=== PATIENT | male | born 1960 | race Caucasian/White ===

== ENCOUNTER 2023-06-05 21:50 | Emergency (ER) | payer BC ==
--- NOTE | 2023-06-05 22:11 | ED Physician Documentation ---
History of Present Illness - Stated complaint Stated Complaint: VOMITING - Additonal information Additional information: Patient 62-year-old male with past medical significant for chronic back pain presenting to the emergency department with nausea, vomiting, diarrhea. Symptoms ongoing x1 day. [place]. No other known sick contacts. Denies fever, chills, abdominal pain not associated with vomiting, dysuria, chest pain or shortness of breath. Review of Systems Constitutional: denies: Fever Eyes: denies: Loss of vision Ears: denies: Loss of hearing Nose: denies: Rhinorrhea / runny nose Throat: denies: Dental pain / toothache Cardiac: denies: Chest pain / pressure Respiratory: denies: Dyspnea GI: reports: Nausea, Vomiting, Diarrhea Musculoskeletal: reports: Back pain PD PAST MEDICAL HISTORY - Present Medications Home Medications: Ambulatory Orders Medication Instructions Recorded Confirmed Ondansetron Odt [Zofran Odt] 4 mg TL Q6H PRN #10 tablet 06/05/23 - Allergies Allergies/Adverse Reactions: Allergies Allergy/AdvReac Type Severity Reaction Status Date / Time No Known Drug Allergies Allergy Verified 06/05/23 22:16 PD ED PE NORMAL - Vitals Vital signs reviewed: Yes - General General: Alert and oriented X 3, No acute distress, Well developed/nourished - HEENT HEENT: Atraumatic, PERRL, EOMI, Ears normal, Moist mucous membranes, Pharynx benign - Neck Neck: Supple, no meningeal sign, No JVD - Cardiac Cardiac: RRR, No murmur, No gallop, No rub, Other (Tachycardic) - Respiratory Respiratory: No respiratory distress - Abdomen Abdomen: Normal bowel sounds, Soft, Non tender, Non distended - Male Male : Deferred - Rectal Rectal: Deferred - Back Back: No CVA TTP, No spinal TTP - Derm Derm: Normal color - Extremities Extremities: No deformity - Neuro Neuro: Alert and oriented X 3, 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, No motor deficit, No sensory deficit, Normal speech Results - Vitals Vitals: Vital Signs - 24 hr 06/05/23 06/05/23 22:15 23:17 Temperature 37.4 C Heart Rate 114 H 114 H Respiratory 18 16 Rate Blood Pressure 176/94 H 154/88 H O2 Saturation 97 98 Oxygen O2 Source Room air - Labs Labs: Laboratory Tests 06/05/23 06/05/23 22:34 22:34 WBC 21.4 H RBC 5.16 Hgb 14.6 Hct 43.9 MCV 85.1 MCH 28.3 MCHC 33.3 RDW 13.2 Plt Count 310 MPV 10.3 Neut # (Auto) Not Reportable Lymph # (Auto) Not Reportable [place] # (Auto) Not Reportable Eos # (Auto) Not Reportable Baso # (Auto) Not Reportable Absolute Nucleated RBC Not Reportable Total Counted 100 Band Neuts % (Manual) 0 Abnorm Lymph % (Manual) 0 Nucleated RBC % Not Reportable Neutrophils # (Manual) 20.5 H Lymphocytes # (Manual) 0.2 L Monocytes # (Manual) 0.6 Eosinophils # (Manual) 0.0 Basophils # (Manual) 0.0 Differential Comment MANUAL DIFFERENTIAL Platelet Estimate NORMAL (130-450,000) Platelet Morphology NORMAL APPEARANCE RBC Morph Micro Appear NORMAL APPEARANCE Sodium 138 Potassium 3.7 Chloride 103 Carbon Dioxide 24 Anion Gap 11.0 BUN 17 Creatinine 1.1 Estimated GFR (MDRD) 67 L Glucose 161 H Calcium 9.1 Total Bilirubin 0.8 AST 14 ALT 19 Alkaline Phosphatase 105 Total Protein 7.8 Albumin 4.3 Globulin 3.5 Albumin/Globulin Ratio 1.2 Lipase 26 PD Medical Decision Making - ED course Complexity details: reviewed results, re-evaluated patient, considered differential, d/w patient, d/w family ED course: Patient 62-year-old male presenting to the emergency department with nausea, vomiting, diarrhea. Past medical significant for back pain. Presents to the emergency department 1 day nausea vomiting and diarrhea. Abdominal exam benign. Given IV hydration, ondansetron and single 2 mg dose of morphine for his back pain. Labs in the emergency department all within normal limits are generally nonactionable. On reevaluation patient found to be resting comfortably. In no acute distress. Tolerated p.o. intake. Departure - Departure Disposition: 01 Home, Self Care Clinical Impression: Vomiting Qualifiers: Vomiting type: unspecified Nausea presence: with nausea Qualified Code(s): R11.2 - Nausea with vomiting, unspecified Prescriptions: Ondansetron Odt [Zofran Odt] 4 mg TL Q6H PRN #10 tablet PRN Reason: Nausea / Vomiting Comments: Thank you for allowing us to care for you today at [facility]. Today in the emergency department your evaluated for any possible life- threatening medical emergency. Your electrolytes, kidney and renal function were all within appropriate limits. You do were noted to have an elevated white blood cell count which is nonspecific finding indicating inflammation or sometimes infection. I am glad that you are feeling better. An elevated white blood cell count is not uncommon in the setting of multiple episodes of nausea vomiting however if you to begin to develop other troublesome symptoms such as fever, abdominal pain, worsening back pain, numbness or tingling around your anus or genitalia or weakness in your lower extremities is importantly return to the emergency department immediately for reevaluation.
[2023-06-05] MEDS ORDERED: SODIUM CHLORIDE 0.9% 2,000 ML IV STA (22:16)
[2023-06-05] MEDS ORDERED: ONDANSETRON 4 MG/2 ML VIAL IVP STA (22:16)
[2023-06-05] MEDS ORDERED: MORPHINE 2 MG/ML CARPUJECT IVP STA (22:16)
[2023-06-05 22:39] LABS: BASOPHILS % (AUTO) 0.1 %; HCT - HEMATOCRIT 43.9 % (42.0-52.0); HGB - HEMOGLOBIN 14.6 g/dL (14.0-18.0); LYMPHOCYTES % (AUTO) 2.4 %; MEAN CORPUSCULAR HEMOGLOBIN 28.3 pg (27.0-31.0); MEAN CORPUSCULAR HGB CONC 33.3 g/dL (32.0-36.0); MEAN CORPUSCULAR VOLUME 85.1 fL (80.0-94.0); MEAN PLATELET VOLUME 10.3 fL (7.4-11.4); MONOCYTES % (AUTO) 8.1 %; PLT - PLATELET COUNT 310 10^3/uL (130-450); RED BLOOD COUNT 5.16 10^6/uL (4.70-6.10); RED CELL DISTRIBUTION WIDTH 13.2 % (12.0-15.0); WHITE BLOOD COUNT 21.4 x10^3/uL (4.8-10.8)
[2023-06-05 22:41] LABS: ABNORMAL LYMPHS % (MANUAL) 0 %; BAND NEUTROPHILS % (MANUAL) 0 %
[2023-06-05 22:52] LABS: ALBUMIN 4.3 g/dL (3.2-5.5); ALBUMIN/GLOBULIN RATIO 1.2 (1.0-2.2); BILIRUBIN,TOTAL 0.8 mg/dL (0.2-1.0); CALCIUM 9.1 mg/dL (8.5-10.3); CREATININE 1.1 mg/dL (0.6-1.2); POTASSIUM 3.7 mmol/L (3.5-5.0); TOTAL PROTEIN 7.8 g/dL (6.7-8.2)
[2023-06-05 22:59] LABS: LYMPHOCYTES # (MANUAL) 0.2 10^3/uL (1.5-3.5); LYMPHOCYTES % (MANUAL) 1 %; MONOCYTES # (MANUAL) 0.6 10^3/uL (0.0-1.0); NEUTROPHILS # (MANUAL) 20.5 10^3/uL (1.5-6.6); PLATELET MORPHOLOGY NORMAL APPEARANCE (NORMAL); RBC MORPHOLOGY (MULTIPLE) NORMAL APPEARANCE (NORMAL)
[2023-06-05 23:00] LABS: DIFFERENTIAL COMMENT MANUAL DIFFERENTIAL; PLATELET ESTIMATE, MANUAL NORMAL (130-450,000) (NORMAL)
[2023-06-05] MEDS ORDERED: ONDANSETRON ODT 4 MG Prepack 2 TL PRN (23:44)
[2023-06-06 00:18] VITALS: BP 169/67
== END 2023-06-06 00:15 | disposition home or self-care (01) ==
LOC: ED 21:50
DX: R11.2 Nausea with vomiting, unspecified (principal); M54.9 Dorsalgia, unspecified; G89.29 Other chronic pain; R33.9 Retention of urine, unspecified
CPT/HCPCS: 36415; 51702; 51798; 80053; 81001; 81003; 83690; 84484; 85025; 87086; 96361; 96374; 99283; 99284

== ENCOUNTER 2023-06-06 06:43 | Emergency (ER) | payer BC ==
[2023-06-06 07:34] LABS: BASOPHILS % (AUTO) 0.2 %; HCT - HEMATOCRIT 42.6 % (42.0-52.0); HGB - HEMOGLOBIN 14.1 g/dL (14.0-18.0); LYMPHOCYTES # (AUTO) 0.6 10^3/uL (1.5-3.5); LYMPHOCYTES % (AUTO) 3.4 %; MEAN CORPUSCULAR HEMOGLOBIN 28.2 pg (27.0-31.0); MEAN CORPUSCULAR HGB CONC 33.1 g/dL (32.0-36.0); MEAN CORPUSCULAR VOLUME 85.2 fL (80.0-94.0); MEAN PLATELET VOLUME 10.4 fL (7.4-11.4); MONOCYTES % (AUTO) 5.4 %; NEUTROPHILS # (AUTO) 16.3 10^3/uL (1.5-6.6); NEUTROPHILS % (AUTO) 90.7 %; PLT - PLATELET COUNT 311 10^3/uL (130-450); RED CELL DISTRIBUTION WIDTH 13.5 % (12.0-15.0)
[2023-06-06 07:49] LABS: ALBUMIN 3.8 g/dL (3.2-5.5); ALBUMIN/GLOBULIN RATIO 1.2 (1.0-2.2); BILIRUBIN,TOTAL 1.1 mg/dL (0.2-1.0); CALCIUM 8.5 mg/dL (8.5-10.3); CREATININE 1.1 mg/dL (0.6-1.2); POTASSIUM 3.6 mmol/L (3.5-5.0); TOTAL PROTEIN 7.1 g/dL (6.7-8.2)
--- NOTE | 2023-06-06 07:51 | ED Physician Documentation ---
PD HPI ABD PAIN - Stated complaint Stated Complaint: CHEST/ABD PX - Chief complaint Chief Complaint: Abd Pain - History obtained from History obtained from: Patient, Family - History of Present Illness Timing - onset: Enter time (0600), Today Timing - duration: Hours Timing - details: Abrupt onset, Still present Quality: Sharp, Pain Location: Suprapubic Radiation: Lower back Improved by: Laying still Worsened by: Moving, Position, Palpation Associated symptoms: Nausea. No: Vomiting Similar symptoms before: Has not had sx before Recently seen: Emergency Dept - Additional information Additional information: Lamine is a 62-year-old male with a history of chronic back pain with left-sided sciatica who is on pain medication and he presented to the emergency department last night with vomiting and diarrhea. He was given a dose of morphine and Zofran with improvement in his pain and he was given IV hydration he had 2 L. This morning at 6:00 he awoke in severe pain unable to urinate. He is come back to the emergency department. He has not had a problem previously with urination or with his prostate. Review of Systems Constitutional: denies: Fever Eyes: denies: Decreased vision Ears: denies: Ear pain Nose: denies: Congestion Throat: denies: Sore throat Cardiac: denies: Chest pain / pressure Respiratory: denies: Dyspnea, Cough GI: reports: Abdominal Pain, Vomiting (resolved), Diarrhea (resolved) : reports: Unable to Void Skin: denies: Rash Musculoskeletal: reports: Back pain (chronic). denies: Neck pain, Extremity swelling Neurologic: denies: Generalized weakness, Focal weakness, Numbness PD PAST MEDICAL HISTORY - Present Medications Home Medications: Ambulatory Orders Medication Instructions Recorded Confirmed Ondansetron Odt [Zofran Odt] 4 mg TL Q6H PRN #10 tablet 06/05/23 - Allergies Allergies/Adverse Reactions: Allergies Allergy/AdvReac Type Severity Reaction Status Date / Time No Known Drug Allergies Allergy Verified 06/05/23 22:16 PD ED PE NORMAL - Vitals Vital signs reviewed: Yes (tachy and hypertensive) - General General: Alert and oriented X 3, Well developed/nourished, Other (anxious and in pain ) - HEENT HEENT: Atraumatic, PERRL, EOMI - Neck Neck: Supple, no meningeal sign, No bony TTP - Cardiac Cardiac: RRR, No murmur - Respiratory Respiratory: No respiratory distress, Clear bilaterally - Abdomen Abdomen: Normal bowel sounds, Soft, No organomegaly, Other (tender suprapubic reproducing the symptoms the patient is having. 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, No motor deficit, No sensory deficit, Normal speech Eye Opening: Spontaneous Motor: Obeys Commands Verbal: Oriented GCS Score: 15 - Psych Psych: Normal mood, Normal affect Results - Vitals Vitals: Vital Signs - 24 hr 06/06/23 06/06/23 06:53 07:55 Temperature 36.7 C Heart Rate 103 H 95 Respiratory 16 20 Rate Blood Pressure 148/87 H 132/90 H O2 Saturation 93 95 Oxygen O2 Source Room air - Labs Labs: Laboratory Tests 06/06/23 06/06/23 06/06/23 07:29 07:29 07:29 WBC 18.0 H RBC 5.00 Hgb 14.1 Hct 42.6 MCV 85.2 MCH 28.2 MCHC 33.1 RDW 13.5 Plt Count 311 MPV 10.4 Neut # (Auto) 16.3 H Lymph # (Auto) 0.6 L [place] # (Auto) 1.0 Eos # (Auto) 0.0 Baso # (Auto) 0.0 Absolute Nucleated RBC 0.00 Nucleated RBC % 0.0 Sodium 137 Potassium 3.6 Chloride 105 Carbon Dioxide 21 Anion Gap 11.0 BUN 16 Creatinine 1.1 Estimated GFR (MDRD) 67 L Glucose 187 H Calcium 8.5 Total Bilirubin 1.1 H AST 13 ALT 18 Alkaline Phosphatase 93 Troponin I High Sens 4.9 Total Protein 7.1 Albumin 3.8 Globulin 3.3 Albumin/Globulin Ratio 1.2 Lipase 27 Urine Color Urine Clarity Urine pH Ur Specific [place] Urine Protein Urine Glucose (UA) Urine Ketones Urine Occult Blood Urine Nitrite Urine Bilirubin Urine Urobilinogen Ur Leukocyte Esterase Urine RBC Urine WBC Ur Squamous Epith Cells Urine Bacteria Urine Casts Urine Mucus Ur Microscopic Review Urine Culture Comments 06/06/23 07:48 WBC RBC Hgb Hct MCV MCH MCHC RDW Plt Count MPV Neut # (Auto) Lymph # (Auto) [place] # (Auto) Eos # (Auto) Baso # (Auto) Absolute Nucleated RBC Nucleated RBC % Sodium Potassium Chloride Carbon Dioxide Anion Gap BUN Creatinine Estimated GFR (MDRD) Glucose Calcium Total Bilirubin AST ALT Alkaline Phosphatase Troponin I High Sens Total Protein Albumin Globulin Albumin/Globulin Ratio Lipase Urine Color YELLOW Urine Clarity CLEAR Urine pH 5.5 Ur Specific [place] >=1.030 H Urine Protein TRACE Urine Glucose (UA) NEGATIVE Urine Ketones 15 H Urine Occult Blood SMALL H Urine Nitrite NEGATIVE Urine Bilirubin NEGATIVE Urine Urobilinogen 0.2 (NORMAL) Ur Leukocyte Esterase NEGATIVE Urine RBC 0-5 Urine WBC 0-3 Ur Squamous Epith Cells FEW Squamous Urine Bacteria Few Urine Casts 0-2 Hyaline Casts Urine Mucus Marked Strands Ur Microscopic Review INDICATED Urine Culture Comments NOT INDICATED Procedures - Bedside sono Bedside sono by EMP: With use of POCUS the suprapubic area is examined and it is sonographically tender the bladder is full it does not appear excessively large. Bilaterally the kidneys are sonographically nontender there is mild hydro bilaterally PD Medical Decision Making - ED course Complexity details: considered differential, d/w patient, d/w family Reviewed Lab Results: We reviewed a complete blood count showing an elevated white blood cell count of 18,000 down from 22,000 a normal hemoglobin hematocrit and platelets the chemistries show normal electrolytes glucose is elevated at 187 kidney function is normal liver function is normal and high-sensitivity troponin is normal urinalysis shows concentrated urine with ketones and small occult blood no evidence of infection. My interpretation of these laboratory results are improvement in the patient's white blood cell count as expected from improvement in the gastroenteritis symptoms. Urinalysis is helpful in describing a urine without evidence of infection. The laboratory results today are primarily reassuring. They do not indicate a specific problem. ED course: 62-year-old Lamine Gomez presents to the emergency department with severe lower abdomen pain with any movement with palpation of the bladder. The bladder is distended. It is not excessively full. It is tender on examination and it is sonographically tender. A [place] catheter is placed with resolution of his symptoms. My interpretation of this is that the patient has urinary retention as a symptom of his presentation and this has been relieved. This does not appear to be related to the prostate. The bladder was not significantly overdistended. For this reason I believe that is most likely that the medication given last night either the morphine or Zofran is the reason for the patient's urinary retention. This medication is expected to wear off and the expectation is he will be able to urinate when his bladder is again full. He has insisted we take the [place] catheter out as he is planning to travel today. I have asked him to follow-up in a local emergency department if he has resident return of his symptoms. Departure - Departure Disposition: 01 Home, Self Care Clinical Impression: Acute urinary retention Condition: Stable Instructions: ED Retention Urinary Male Follow-Up: Your, doctor [Other] Comments: Lamine, today it looks like you have had acute urinary retention and as discussed I believe this is probably related to medication given last night. Either the Zofran or the morphine. This medication will wear off and the expected result is you will be able to urinate normally. We have pulled the [place] catheter out and if you are unable to urinate before you get onto the plane, and develope these symptoms, go to a nearby ER and have a [place] catheter placed. Then leave it in place until follow up with your regular doctor.
[2023-06-06 08:00] LABS: BILIRUBIN,URINE NEGATIVE (NEGATIVE); GLUCOSE, URINE (UA) NEGATIVE (NEGATIVE); KETONES,URINE (UA) 15 mg/dL (NEGATIVE); LEUKOCYTE ESTERASE, URINE NEGATIVE (NEGATIVE); NITRITE,URINE NEGATIVE (NEGATIVE); OCCULT BLOOD,URINE SMALL (NEGATIVE); PH,URINE 5.5 PH (5.0-7.5); PROTEIN,URINE TRACE mg/dL (NEGATIVE); UROBILINOGEN,URINE 0.2 (NORMAL) E.U./dL (NORMAL)
[2023-06-06 08:01] LABS: CLARITY,URINE CLEAR (CLEAR)
[2023-06-06 08:09] LABS: BACTERIA,URINE Few /HPF (None Seen); CASTS, URINE 0-2 Hyaline Casts /LPF; MUCUS,URINE Marked Strands; RBC,URINE 0-5 /HPF (0-5); SQUAMOUS EPITHELIAL CELL,UR FEW Squamous (<= Few); WBC,URINE 0-3 /HPF (0-3)
[2023-06-06 09:13] VITALS: BP 140/67
== END 2023-06-06 09:12 | disposition home or self-care (01) ==
LOC: ED 06:43
DX: R33.9 Retention of urine, unspecified (principal)
CPT/HCPCS: 36415; 51702; 51798; 80053; 81001; 81003; 83690; 84484; 85025; 87086; 99284